=== PATIENT | male | born 1975 | race Caucasian/White ===

== ENCOUNTER → 2023-02-25 08:52 | Outpatient (BNVA) | payer OTHER, SELFPAY | PROVIDERS: Visit Provider Internal Medicine | DX: S60.222A Contusion of left hand, initial encounter (principal); S40.012A Contusion of left shoulder, initial encounter; W20.8XXA Other cause of strike by thrown, projected or falling object, initial encounter | CPT/HCPCS: 29125; 99204 ==

== ENCOUNTER → 2023-02-28 07:57 | Outpatient (BNVA) | payer OTHER, SELFPAY | PROVIDERS: Visit Provider Physician Assistant Medical | DX: S60.222A Contusion of left hand, initial encounter (principal); S40.012A Contusion of left shoulder, initial encounter; W20.8XXA Other cause of strike by thrown, projected or falling object, initial encounter | CPT/HCPCS: 99213 ==

== ENCOUNTER → 2023-03-07 07:43 | Outpatient (BNVA) | payer OTHER, SELFPAY | PROVIDERS: Visit Provider Physician Assistant Medical | DX: S60.222A Contusion of left hand, initial encounter (principal); S40.012A Contusion of left shoulder, initial encounter; W20.8XXA Other cause of strike by thrown, projected or falling object, initial encounter | CPT/HCPCS: 99214 ==

== ENCOUNTER 2023-03-08 13:13 | Outpatient (RCR) | payer OTHER, SELFPAY ==
--- NOTE | 2023-03-08 14:11 | MHC.OT.EP ---
[address] [phone] Occupational Therapy Plan of Care Patient Name: Ashkan Guan Date of Evaluation: 03/08/23 Diagnosis: Left hand crush injury w/ triquitrum fx Pain Location: Mild resting pain in ulnar aspect of dorsal hand Pain Score: 3 Pain Scale Used: Numeric (0 - 10) Aggravating Factors: Not doing activities to aggravate Alleviating Factors: Occasional ibuprophen or tylenol; ice Assessment: 47 yo male was working and pipe fell down onto left hand, he was seen in work connection that day, x-ray (-) for acute changes, but follow up CT shows left triquitrum fx. He was placed in pre-yenny orthosis for protection. On assessment, he cont's to wear orthosis and was removed for skin/soft tissue check and to look at hand movement. We have not tested left gross grasp or wrist ROM at this time, but educated on digit ROM to decrease edema and maintain mobility in fingers. He has ortho visit tomorrow and we will hold OT until further recommendations w/ progression of range. I anticipate he will do well when cleared for movement and to progress strength, range and functional use of left hand. Frequency and Duration: The patient will be seen 2x/wk for 6 weeks when cleared by ortho Short Term Goals: Initiate wrist AROM Active digit tip-DPC w/ ease Ind w/ use of ice to hand as needed Metal Sorter Goals: Pt to demo wrist ext/flex >50/50 Pt to demo gross grasp >50lb Pt to demo good use of left hand w/ light daily activities Good understanding of progression of wrist and hand strengthening exercises Treatment Plan: Therapeutic Exercise Therapeutic Activity Home Exercise Program Splinting Patient Education Edema Control ADL Training Paraffin Fluidotherapy MHP Cold Packs Joint Mobilization Soft Tissue Mobilization Kinesiotaping Electronically Signed By: Andreia Ramirez OTR/L CHT Please Sign and return to therapist. Thank you once again for your referral.
== END 2023-05-02 10:51 | disposition home or self-care (01) ==
LOC: HO.OT 13:13
PROVIDERS: PCP Nurse Practitioner Adult Health; Visit Provider Physician Assistant Medical
DX: S60.222D Contusion of left hand, subsequent encounter (principal)
CPT/HCPCS: 97110; 97165

== ENCOUNTER 2023-03-09 08:51 | Outpatient (AMB) | payer OTHER, SELFPAY ==
--- NOTE | 2023-03-09 09:00 | A.OFFVIS_ITS ---
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 Patient works for [employer]/ [employer]. States he was seen at work connection s/p getting his hand crushed by a heavy pipe. He has Xray and a Cat scan of his left hand. Patient was given a brace after confirming he has a fracture. Currently states he has pain 3/10 on pain scale. Denies numbness or tingling if his fingers. 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 This is a work injury, where his hand was crushed by a heavy pipe. 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 He had an X-ray and CT scan, was told he had a Triquetral fx, and given a brace to wear. He says he continues to have pain in the base of the thumb, but this is less than it was following his injury. He has some pain over the 5th metacarpal area as well. He denies any numbness or tingling. 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 Review of Systems Const All systems reviewed & are unremarkable except as noted in HPI and below Physical Exam Vital Signs: BMI result Body Mass Index 35.7 Const General: cooperative, healthy appearing and no acute distress Orientation/consciousness: patient oriented x3 HEENT Head: Yes normocephalic and Yes atraumatic Eyes EOM: EOMs intact bilaterally Resp Effort & Inspection: normal respiratory effort and able to speak in complete sentences Cardio Jugular venous distension: no JVD Skin General skin exam: turgor normal Rashes: no rashes Neuro General: patient oriented x3 Extrem Other: Evaluation of Left Upper Extremity: The patient is alert, oriented, and in no acute distress Neuro: Median, Ulnar, Radial nerves motor and sensory intact and sensation is normal to the tips of all digits Vascular: Cap refill brisk ROM: With encouragement he can bring his fingers close to a fist and back into full extension. He can then do this repeatedly without much effort. He can actively flex and extend and circumduct the thumb. Good wrist active flexion and extension without pain. He was most tender to palpation about the trapezium and at the basal joint of the thumb. He was not particularly tender over the triquetrum, or even more generally over the radio or ulnocarpal joints. No pain with active wrist flexion extension and prono-supination. No tenderness over the distal radius distal ulnar DRUJ. No tenderness over the metacarpals or digits other than specifically over the basal joint of the thumb. Mild swelling that appears to be resolving No lacerations or evidence of open injury. Skin: No lacerations or abrasions. General: No Ecchymosis. No Erythema or evidence of infection. Radiographs: CT scan of the left hand from 03/07/23 were reviewed by me today in clinic. They show a right Trapezium fracture, opposed to a Triquetral fracture described on the report. The fracture is intra-articular and minimally displaced. 3 views of the left hand from 02/25/23 were reviewed by me today in clinic. No obvious fracture dislocations visualized. Question possible nondisplaced fracture, longitudinally oriented of the trapezium Psych Appearance: grossly normal Affect: normal affect Attitude: cooperative Office Procedures Fracture Care Details: Trapezium fracture care 97633 Fracture Billing Code: Fracture Billing Code Assessment & Plan Assessment & Plan (1) Fracture of trapezium of left wrist, closed: Code(s): S62.172A - Displaced fracture of trapezium [larger multangular], left wrist, initial encounter for closed fracture Plan Assessment & Plan: 1. Left trapezium fracture Minimally displaced, intra-articular From a crush injury, DOI: 02/25/23 This is a work-related injury I educated him about this condition This can be treated non operatively. He was fitted for a heat-molded thumb spica splint to wear for the next 4 weeks I discussed activity modification, he is to lift nothing heavier than a cellphone for at least 4 weeks He is to avoid any pinching or gripping activities for the next 4 weeks He will work on gentle wrist and finger ROM out of his splint at home He can use ice for pain and swelling relief He was given a note for work to continue on light duty, no use of his left thumb. 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 He will follow up in 4 weeks, with X-rays 3V L hand attn thumb Please note that greater than 30 minutes was spent with this patient going over the history, evaluating the patient and radiographs, formulating possible treatment options, discussing them with the patient, and documenting the visit. Scribed for Julita Alexander MD by Con Bowers medical clinic manager, on 03/09/23 at 9:45 AM, EST. Coding Level of Care Code New Pt Level 4 (35619) Diagnoses Fracture of trapezium of left wrist, closed S62.172A CPT Codes Fracture Care - Fracture Billing Code: Fracture Billing Code ([id number])
[2023-03-09 09:12] VITALS: BMI 35.7
== END 2023-03-09 09:59 | disposition home or self-care (01) ==
PROVIDERS: PCP Nurse Practitioner Adult Health; Visit Provider Orthopaedic Surgery
DX: S62.172A Displaced fracture of trapezium [larger multangular], left wrist, initial encounter for closed fracture (principal)
CPT/HCPCS: 25630; 99204

== ENCOUNTER → 2023-03-09 08:51 | Outpatient (BNVA) | payer OTHER, SELFPAY | PROVIDERS: PCP Nurse Practitioner Adult Health; Visit Provider Orthopaedic Surgery | DX: S62.172A Displaced fracture of trapezium [larger multangular], left wrist, initial encounter for closed fracture (principal); W23.0XXA Caught, crushed, jammed, or pinched between moving objects, initial encounter; Y93.H3 Activity, building and construction; Y92.89 Other specified places as the place of occurrence of the external cause; Y99.0 Civilian activity done for income or pay | CPT/HCPCS: 99202 ==

== ENCOUNTER 2023-04-13 07:11 | Outpatient (REF) | payer OTHER, SELFPAY ==
--- NOTE | ~2023-04-13 | XR_ITS ---
EXAMINATION: XR HAND, LEFT CLINICAL INFORMATION: Pain in left hand. COMPARISON: None available. TECHNIQUE: PA, lateral, and oblique views of the left hand. FINDINGS: There is mild loss of PIP and DIP joint space without periarticular spurring or bony erosive changes. There is mild juxta-articular osteopenia. The carpal bones and intercarpal joint space is maintained. Especially the trapezium and the trapezoid bones are unremarkable. No visible acute fracture, dislocation or subluxation seen. The soft tissues are normal. XR/XR hand LT min 3V IMPRESSION: Mild degenerative changes of PIP and DIP joints. No visible acute fracture, dislocation or subluxation seen. No abnormality involving the trapezium.
== END 2023-04-13 07:12 | disposition home or self-care (01) ==
LOC: HO.HOSX 07:11
PROVIDERS: Visit Provider Orthopaedic Surgery
DX: S62.172D Displaced fracture of trapezium [larger multangular], left wrist, subsequent encounter for fracture with routine healing (principal); X58.XXXD Exposure to other specified factors, subsequent encounter
CPT/HCPCS: 73130

== ENCOUNTER 2023-04-13 08:34 | Outpatient (AMB) | payer OTHER, SELFPAY ==
--- NOTE | 2023-04-13 09:04 | A.OFFVIS_ITS ---
Intake Vital Signs 04/13/23 09:05 Height 5 ft 8 in Weight 235 lb BMI 35.7 Intake Visit Reasons: Lt Thumb Intake Note: Ashkan 47 yr old right hand dominant male presents today for his follow up visit for his work related injury of his Left (hand) trapezium fracture from a crush injury, DOI: 02/25/[address] Alexander who advise patient to work on gentle ROM. States he is improving on his ROM. He has a tingling sensation on wrist on his volar aspect of palm and some discomfort by his pinky MC. Allergies No Known Allergies Allergy (Verified 04/13/23 09:13) HPI Lt Thumb HPI Details Ashkan is a 47 year old right hand dominant man who returns to discuss his left trapezium fracture, DOI: 02/25/23.?This is a work injury, where his hand was crushed by a heavy pipe. 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 He has been working on ROM exercises and wearing his custom splint as instructed. 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 Physical Exam Vital Signs: BMI result Body Mass Index 35.7 Const General: cooperative, healthy appearing and no acute distress Orientation/consciousness: patient oriented x3 HEENT Head: Yes normocephalic and Yes atraumatic Eyes EOM: EOMs intact bilaterally Resp Effort & Inspection: normal respiratory effort and able to speak in complete sentences Cardio Jugular venous distension: no JVD Skin General skin exam: turgor normal Rashes: no rashes Neuro General: patient oriented x3 Extrem Other: Evaluation of Left Upper Extremity: The patient is alert, oriented, and in no acute distress Neuro: Median, Ulnar, Radial nerves motor and sensory intact and sensation is normal to the tips of all digits Vascular: Cap refill brisk ROM: With encouragement he can bring his fingers close to a fist and back into full extension. He can then do this repeatedly without much effort. He can actively flex and extend and circumduct the thumb. He has some mild stiffness in wrist flexion and extension Flexion: ~45 degrees limited by pain Extension: ~45 degrees limited by pain No tenderness about the trapezium and at the basal joint of the thumb. He was not particularly tender over the triquetrum, or even more generally over the radio or ulnocarpal joints. No pain with active wrist flexion extension and prono-supination. No tenderness over the distal radius distal ulnar DRUJ. No tenderness over the metacarpals or digits other than specifically over the basal joint of the thumb. Resolved swelling Radiographs: 3 views of the left hand were taken and viewed by me today in clinic. No obvious fracture dislocations visualized. Question possible nondisplaced fracture, longitudinally oriented of the trapezium Psych Appearance: grossly normal Affect: normal affect Attitude: cooperative Assessment & Plan Assessment & Plan (1) Fracture of trapezium of left wrist, closed: Onset Date: ~02/25/23 Code(s): S62.172A - Displaced fracture of trapezium [larger multangular], left wrist, initial encounter for closed fracture Plan Assessment & Plan: 1. Left trapezium fracture Minimally displaced, intra-articular From a crush injury, DOI: 02/25/23 This is a work-related injury I educated him about this condition He appears to be doing well. He will discontinue his splint at this time. I discussed activity modification, he is to work on light & medium weight activities for the next 4 weeks He should continue to try and limit any heavy pinching, gripping, or lifting activities. He will continue to work on wrist and finger ROM at home I ordered OT hand therapy to work on ROM exercises He was given a note for work to continue on light duty, with a 3lb weight limit with his LUE for the next 4 weeks. He is a [employer], and has been able to do most of his job including on the computer without difficulty. He will follow up in 4 weeks for a ROM check Scribed for Julita Alexander MD by Con Bowers, medical staff services manager, on 04/13/23 at 9:25 AM, EST. Orders: Orders XR hand LT min 3V Today M79.642 - Pain in left hand OT Evaluation and Treatment Today S62.172A - Displaced fracture of trapezium [larger multangular], left wrist, initial encounter for closed fracture Coding Level of Care Code Global (82609) Diagnoses Fracture of trapezium of left wrist, closed S62.172A
[2023-04-13 09:05] VITALS: BMI 35.7
== END 2023-04-13 09:37 | disposition home or self-care (01) ==
PROVIDERS: PCP Nurse Practitioner Adult Health; Visit Provider Orthopaedic Surgery
DX: S62.172A Displaced fracture of trapezium [larger multangular], left wrist, initial encounter for closed fracture (principal)
CPT/HCPCS: 99024

== ENCOUNTER 2023-05-06 08:34 | Outpatient (AMB) | payer OTHER, SELFPAY ==
--- NOTE | 2023-05-06 08:38 | MHC.OFFVIS ---
Intake Vital Signs 05/06/23 08:43 Height 5 ft 8 in Weight 235 lb BMI 35.7 Intake Visit Reasons: ov- Fracture of trapezium of left wrist, Intake Note: Ashkan is a 47 year old right hand dominant male who presents today for a follow up visit/ROM check of his Left (hand) trapezium fracture from a crush injury, DOI: 02/25/23. WC Injury. Patient reports that he has concerns of swelling/lump over the 5th MC of the left hand, he explanis that this was not present prior to the injury and causes discomfort. His ROM is gradually improving. At his last appointment he was given a work note stating : light duty, with a 3lb weight limit with his LUE for the next 4 weeks. He will need updated work note. Allergies No Known Allergies Allergy (Verified 04/13/23 09:13) HPI ov- Fracture of trapezium of left wrist, HPI Details The patient is a 47-year-old [id number] man who works as a [employer] at [employer]. He is here today to follow-up for his work related crush injury to his left hand which resulted in a minimally displaced left trapezium fracture. Date of injury was 02/25/2023. He says he thinks his hand is improving nicely. He has started working with OT hand therapy. He said there are just starting to give him some things to work on strengthening. He feels like he is now easily lifting 5 lb and could go to 10 lb with his left hand. He does say that he has had some discomfort in the area of his 5th metacarpal. This is also improving but he just wants to know if there was a problem there that needs to be addressed. 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 Regarding his left hand he no longer has any swelling or ecchymosis. He can fully extend all his digits and he can bring them closed to a tight fist with good strength and no pain. His 5th metacarpal is not particularly tender and there is no pain with axial loading through the MCP or CMC joints. Extensor and flexor tendons appear to be working well with no subluxation or other visible issues. Smooth wrist flexion extension and prono-supination without evidence of discomfort. When he tries to extend his wrist and then extend his fingers at the same time he demonstrates that that causes some discomfort in the dorsal ulnar aspect of his hand that appears to be more in the extensor tendons. Again good active tendon motion. Regarding the left thumb he has full active range of motion of the left thumb without discomfort. The 1st CMC joint was nontender to palpation today. No pain with axial loading or with loading of the basal joint with some motion. He can oppose his thumb to all digits. He can pinch with his thumb and that does not appear cause him pain. Radiographs three views of his left hand from 04/13/2023 were again reviewed today by me in clinic. I do not see any fractures or dislocations. In particular I do not see any visible fractures at the trapezium, again this was diagnosed using CT scan. But also in looking at the ulnar aspect of his hand I do not see any evidence of acute fracture that 5th metacarpal. Assessment & Plan Assessment & Plan (1) Fracture of trapezium of left wrist, closed: Onset Date: ~02/25/23 Code(s): S62.172A - Displaced fracture of trapezium [larger multangular], left wrist, initial encounter for closed fracture Plan Assessment & Plan: ? 1. Left trapezium fracture Minimally displaced, intra-articular From a crush injury, DOI: 02/25/23 This is a work-related injury ? I educated him about this condition He appears to be doing very well. No pain with axial loading, no pain with full range of motion. He will occasionally get some pain when he is doing some heavy gripping. 2. Some mild discomfort in line with the left 5th metacarpal shaft. No evidence of fracture on x-rays. Symptoms appear to be improving. I do not believe any intervention is required. He is going to continue with OT to work on improving strength and hand function. He is going to continue to work on light duty the we are increasing his weight limit to 10 lb with the left hand as he believes that is what he can do. He will follow-up in 4 weeks as this is a work comp related issue and at that time hopefully we can return him to full duty. He is happy with the current plan. Coding Level of Care Code Global (64546) Diagnoses Fracture of trapezium of left wrist, closed S62.172A
[2023-05-06 08:43] VITALS: BMI 35.7
== END 2023-05-06 11:21 | disposition home or self-care (01) ==
PROVIDERS: PCP Nurse Practitioner Adult Health; Visit Provider Orthopaedic Surgery
DX: S62.172A Displaced fracture of trapezium [larger multangular], left wrist, initial encounter for closed fracture (principal)
CPT/HCPCS: 99024

== ENCOUNTER → 2023-05-06 08:34 | Outpatient (BNVA) | payer OTHER, SELFPAY | PROVIDERS: PCP Nurse Practitioner Adult Health; Visit Provider Orthopaedic Surgery ==

== ENCOUNTER 2023-05-19 13:30 | Outpatient (RCR) | payer OTHER, SELFPAY ==
--- NOTE | 2023-04-25 09:37 | MHC.OT.EP ---
[address] [phone] Occupational Therapy Plan of Care Patient Name: Ashkan Guan Date of Evaluation: 04/25/23 Diagnosis: Displace fracture of trapezium, left wrist. Pain Location: 1-8 left thumb. achy Pain Score: 8 Pain Scale Used: Numeric (0 - 10) Aggravating Factors: Alleviating Factors: Avoiding left thumb Assessment: Pt is a 47 yo male 8 wks ,3 days s/p left wrist trapezium fracture due to a crush injury at work. He wore a forearm based thumb spica for protection for 4 wks and has been doing AROM of his wrist over the past two week , light use of left only. He has a good awareness of limiting use over the next few weeks . 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 Thank you once again for your referral.
--- NOTE | 2023-05-05 14:27 | MHC.OT.OP ---
[address] [phone] F: [phone] Occupational Therapy Progress Note Patient Name: Ashkan Guan Diagnosis: Displace fracture of trapezium, left wrist. Date of Surgery: Date of Evaluation: 04/25/23 Treatments to Date: 4 Cancellations to Date: No Shows to Date: Subjective: I haven't been pushing it Pain Score: 5 Pain Location: Left dorsal wrist Objective Measures: AROM Wrist ext 50 deg flexion 60 deg thumb op to RF Status: Progressing Assessment: Pt seen 4x in OT. 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 Wrist ROM ,hand ROM and functional use are significantly improved. He has begun wrist strengthening and holding on brokerage manager strengthening until his follow up with Dr Alexander tomorrow. He continues to report dorsal ulnar hand pain, with mild edema and tender on palpation > radial wrist or hand Short Term Goals: Demo indep with HEP (met) Wrist ext to 45 deg (met) IP flex to 70 deg Thumb op to SF pad (met) FDT with left in 18 sec (met) Manager Digital Goals: Pain free wrist AROM Wrist ext to equal right Left brokerage manager to 60 lb Left hand pinch with mod resistant activities Quick DASH < 20 pts Frequency and Duration: The patient will be seen 1-2x wk x 4 wks Treatment Plan: Therapeutic Exercise Therapeutic Activity Home Exercise Program Patient Education Soft Tissue Mobilization Progress pinch and brokerage manager on 05/11/23 Electronically Signed By: Ellen Draper OT CHT CLT Reviewed/agree with student documentation: Therapist:
--- NOTE | 2023-05-19 16:19 | MHC.OT.DC ---
[address] [phone] F: [phone] Occupational Therapy Discharge Note Patient Name: Ashkan Guan Provider: Julita Alexander Diagnosis: Displace fracture of trapezium, left wrist. Date of Surgery: Date of Evaluation: 04/25/23 Date of Discharge: 05/19/23 Treatments to Date: 7 Cancellations to Date: No Shows to Date: Discharge Status: Achieved Goals Improved Function Independent with HEP Discharge Summary: Pt is 12 weeks s/p left trapezium fracture due to a crush injury at work. 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 His primary complaint is wrist pain with partial weight bearing on his left hand His work and hobbies involve hand tools , pulling, lifting, pushing, and occasional weight bearing on his left hand Wrist flexion 65 deg Left wrist ext 50 deg , Right wrist 55 deg Thumb IP jt flexion 80 deg Traffic Officer R 80 lb L 55 lb Electronically Signed By: Ellen Draper OT CHT CLT Reviewed/agree with student documentation: Therapist: Please Sign and return to therapist, thank you for your referral.
== END 2023-05-23 14:57 | disposition home or self-care (01) ==
LOC: HO.OT 13:30
PROVIDERS: PCP Nurse Practitioner Adult Health; Visit Provider Orthopaedic Surgery
DX: S62.172D Displaced fracture of trapezium [larger multangular], left wrist, subsequent encounter for fracture with routine healing (principal)
CPT/HCPCS: 97033; 97110; 97140; 97165

== ENCOUNTER 2023-06-06 12:22 | Outpatient (AMB) | payer OTHER, SELFPAY ==
--- NOTE | 2023-06-06 12:29 | A.OFFVIS_ITS ---
Intake Intake Visit Reasons: ov- Fracture of trapezium of left wrist Intake Note: This is a 48 year old male who presents for a follow up visit/ROM check of his Left (hand) trapezium fracture from a crush injury, DOI: 02/25/23. WC Injury. Patient states his range of motion has improved from 4 weeks ago. He denies pain. Allergies No Known Allergies Allergy (Verified 06/06/23 12:33) Medication List - Last Reconciled 06/06/23 by Kari Sage RN No Known Home Meds HPI ov- Fracture of trapezium of left wrist HPI Details 48-year-old male who returns to the [facility] today for a follow-up of left wrist fracture s/p crush injury, 02/25/23. He states he has no pain and is doing well overall. He also reports his ROM has been improved for 4 weeks. He has no concerns today. 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 No tenderness over the trapezium or surrounding structure of hand. No pain along the distal radius. He has full ROM without pain or crepitus. He can make a full fist and fully extend digits and has good strength. NVI. Assessment & Plan Assessment & Plan (1) Fracture of trapezium of left wrist, closed: Onset Date: ~02/25/23 Code(s): S62.172A - Displaced fracture of trapezium [larger multangular], left wrist, initial encounter for closed fracture Qualifiers: Encounter type: subsequent encounter Fracture alignment: nondisplaced Fracture healing: with routine healing Qualified Code(s): S62.175D - Nondisplaced fracture of trapezium [larger multangular], left wrist, subsequent encounter for fracture with routine healing Plan He will increase activity as tolerated which includes returning to work as of today without restrictions. If he develops any type of worsening symptoms or concerns, he will contact the office, otherwise follow-up as needed. Patient Instructions: Scribed for Yani Villatoro PA-C, by Otoniel Rodríguez medical detail representative, on 06/06/2023 at 12:30 PM Yani RENNER PA-C, have personally reviewed and agree with the information entered by the scribe. Coding Level of Care Code Global (21339) Diagnoses Closed nondisplaced fracture of trapezium of left wrist with routine healing, subsequent encounter S62.175D Encounter type: subsequent encounter Fracture alignment: nondisplaced Fracture healing: with routine healing
== END 2023-06-06 12:45 | disposition home or self-care (01) ==
PROVIDERS: PCP Nurse Practitioner Adult Health; Visit Provider Physician Assistant
DX: S62.175D Nondisplaced fracture of trapezium [larger multangular], left wrist, subsequent encounter for fracture with routine healing (principal)
CPT/HCPCS: 99213

== ENCOUNTER → 2023-06-06 12:22 | Outpatient (BNVA) | payer OTHER, SELFPAY | PROVIDERS: PCP Nurse Practitioner Adult Health; Visit Provider Physician Assistant | DX: S62.175D Nondisplaced fracture of trapezium [larger multangular], left wrist, subsequent encounter for fracture with routine healing (principal) | CPT/HCPCS: 99212 ==